=== PATIENT | male | born 1975 | race Caucasian/White ===

== ENCOUNTER 2025-01-17 14:25 | Emergency (ER) | payer OTHER, MEDICARE ==
[~2025-01-17] VITALS: Ht 167.6 cm; Wt 80.7 kg
== END 2025-01-17 15:22 | disposition home or self-care (01) ==
LOC: ER 14:25
DX: S80.862A Insect bite (nonvenomous), left lower leg, initial encounter (principal); S80.861A Insect bite (nonvenomous), right lower leg, initial encounter; Z59.89 Other problems related to housing and economic circumstances; W57.XXXA Bitten or stung by nonvenomous insect and other nonvenomous arthropods, initial encounter
CPT/HCPCS: 99281